=== PATIENT | female | born 1940 | race Caucasian/White ===

== ENCOUNTER 2019-01-22 16:47 | Emergency (ER) | payer MEDICARE, MEDICAID ==
[~2019-01-22] VITALS: Ht 162.6 cm; Wt 68.0 kg
--- NOTE | 2019-01-22 16:55 | NUR ---
PT A/OX4, BIB PRIVATE AMBULANCE FROM [facility], C/O HEMATURIA YESTERDAY. PT PRESENTS W/ UROSTOMY BAG, URINE IS CLEAR AND LIGHT YELLOW IN COLOR. SECONDARY COMPLAINT: PER EMT'S REPORT, PT WAS FOUND SITTING ON THE FLOOR NEXT TO HER BED AT THE [facility] [employer]. PT REPORTS SHE GOT "DIZZY" AND SAT HERSELF DOWN ON THE FLOOR. PT DENIES HEAD INJURY/LOC. UPON ASSESSMENT, THERE ARE MINOR ABRASIONS ON THE L HAND AND L FOREARM. VS WNL. PT DENIES PAIN, C/P, SOB, N/V/D, DIZZINESS, HEADACHE.
--- NOTE | 2019-01-22 17:15 | NUR ---
GORDO RUDOLPH AT BEDSIDE FOR MSE.
[2019-01-22] MEDS ORDERED: MAGN400O6 PO (17:18)
[2019-01-22] MEDS ORDERED: TRAM50TA2 PO (17:18)
[2019-01-22] MEDS ORDERED: ACET-2154 PO (17:18)
[2019-01-22] MEDS ORDERED: MELO-105 PO (17:18)
[2019-01-22] MEDS ORDERED: CALC-261 PO (17:18)
[2019-01-22] MEDS ORDERED: MELA3TAB PO (17:18)
[2019-01-22] MEDS ORDERED: LEVO100T10 PO (17:18)
[2019-01-22] MEDS ORDERED: DOCU-141 PO (17:18)
[2019-01-22] MEDS ORDERED: FURO-151 PO (17:18)
[2019-01-22] MEDS ORDERED: ATOR10TA PO (17:18)
--- NOTE | 2019-01-22 17:47 | NUR ---
PT TAKEN TO RADIOOGY FOR CT SCAN.
[2019-01-22 17:50] LABS: BASOPHILS # (AUTO) 0.1 K/uL (0.0-8.0); HEMATOCRIT 31.4 % (31.2-41.9); HEMOGLOBIN 10.4 g/dL (10.9-14.3); LYMPHOCYTES # (AUTO) 2.1 K/uL (20.0-40.0); LYMPHOCYTES % (AUTO) 36.6 % (20.5-51.5); MEAN CORPUSCULAR HEMOGLOBIN 28.2 uug (24.7-32.8); MEAN CORPUSCULAR HGB CONC 33 g/dL (32.3-35.6); MEAN CORPUSCULAR VOLUME 85.2 fL (75.5-95.3); MONOCYTES # (AUTO) 0.3 K/uL (2.0-10.0); MONOCYTES % (AUTO) 5.8 % (0.0-11.0); NEUTROPHILS # (AUTO) 3.2 K/uL (1.8-8.9); NEUTROPHILS % (AUTO) 56.6 % (38.5-71.5); PLATELET COUNT (AUTO) 242 K/uL (179-408); RED BLOOD CELL COUNT(AUTO) 3.69 MIL/uL (3.63-4.92); WHITE BLOOD COUNT (AUTO) 5.7 K/uL (3.8-11.8)
[2019-01-22 18:01] LABS: *BILIRUBIN,URIN NEGATIVE (NEGATIVE); *BLOOD, URINE 1+ (NEGATIVE); *COLOR,URINE LIGHT YELLOW (YELLOW); *KETONES,URINE NEGATIVE (NEGATIVE); *UROBILINOGEN,URINE 0.2 E.U./dl (NORMAL); LEUKOCYTE ESTERASE ,URINE 1+ (NEGATIVE); NITRITE, URINE POSITIVE (NEGATIVE); UGLUCOSE NEGATIVE (NEGATIVE)
[2019-01-22 18:02] LABS: CARBON DIOXIDE 25 mmol/L (21-32); CHLORIDE 105 mmol/L (98-107); CREATININE 1.3 mg/dL (0.6-1.3); GLUCOSE 94 mg/dL (74-106); POTASSIUM 4.4 mmol/L (3.5-5.1); UREA NITROGEN, BLOOD 23 mg/dL (7-18)
[2019-01-22 18:03] LABS: *CLARITY,URINE SLIGHTLY CLOUDY (CLEAR)
--- NOTE | 2019-01-22 18:05 | NUR ---
PT BACK IN ER FROM RADIOLOGY.
[2019-01-22 18:10] LABS: BACTERIA,URINE MODERATE /HPF (NONE SEEN); SQUAMOUS EPITHELIAL CELL,UR FEW /HPF (NONE SEEN)
[2019-01-22 18:19] LABS: ALANINE AMINOTRANSFERASE 28 U/L (14-59); ALKALINE PHOSPHATASE 69 U/L (50-136); ASPARTATE AMINOTRANSFERASE 20 U/L (15-37); BILIRUBIN,DIRECT 0.1 mg/dL (0.0-0.2); BILIRUBIN,TOTAL 0.2 mg/dL (0.2-1.0); TOTAL PROTEIN, SERUM 7.7 g/dL (6.4-8.2)
[2019-01-22] MEDS ORDERED: CEFTRIAXONE 1 G VIAL ONE (18:49)
[2019-01-22] MEDS ORDERED: LIDOCAINE HCL 1% 20 ML VIAL ONE (18:49)
--- NOTE | 2019-01-22 19:02 | NUR ---
SHIFT REPORT GIVEN TO NELSON WINSLOW.
--- NOTE | 2019-01-22 19:05 | NUR ---
ASSUMED CARE OF PATIENT. PENDING CT RESULTS AT THIS TIME. THEN POSSIBLE D/C TO PREVIOUS LEVEL OF CARE IF CT IS CLEAR. WILL CONTINUE TO MONITOR PATIENT.
--- NOTE | 2019-01-22 19:21 | NUR ---
Patient not in cardiopulmonary distress. Rate/rythm regular. No heaves, lifts, gallops/murmurs noted. Respiration even and unlabored with symmetrical rise.
--- NOTE | 2019-01-22 19:25 | NUR ---
GORDO RUDOLPH ON PHONE WITH ALVIN RUDOLPH
--- NOTE | 2019-01-22 19:34 | NUR ---
pATIENT TO BE D/C TO PREVIOUS LEVEL OF CARE. BLS TRANSPORT ETA @ 30MIN. TRIP # [id number]
--- NOTE | 2019-01-22 20:00 | NUR ---
pATIENT IN BED, PENDING D/C TO PREVIOUS LEVEL OF CARE.
--- NOTE | 2019-01-22 20:21 | NUR ---
[facility] at bedside for patient product picker.
[2019-01-22] MEDS ORDERED: CLONIDINE HCL 0.2 MG TABLET ONE (20:26)
[2019-01-22] MEDS ORDERED: CLONIDINE HCL 0.2 MG TABLET PO ONE (20:30)
--- NOTE | 2019-01-22 20:31 | NUR ---
BP down to 162/81 after Clonidine 0.2mg given PO.
--- NOTE | 2019-01-22 20:40 | NUR ---
Patient discharged to home in stable conditon. Written and verbal after care instructions given. Patient verbalizes understanding of instructions. Belongings/chart given to EMT on [facility]
[2019-01-22 20:41] VITALS: BP 161/82
[2019-01-26] MEDS ORDERED: PIPE3.376 IV (07:20)
== END 2019-01-22 20:42 | disposition home or self-care (01) ==
LOC: ER 16:47
DX: R42 Dizziness and giddiness (principal); R31.9 Hematuria, unspecified; R19.7 Diarrhea, unspecified; E03.9 Hypothyroidism, unspecified; E78.5 Hyperlipidemia, unspecified; Z90.710 Acquired absence of both cervix and uterus; Z88.6 Allergy status to analgesic agent; Z88.5 Allergy status to narcotic agent; Z88.8 Allergy status to other drugs, medicaments and biological substances; Z79.899 Other long term (current) drug therapy; Z79.2 Long term (current) use of antibiotics
CPT/HCPCS: 36415; 70030-TC; 70450; 71045; 72125; 73502; 83605; 85025; 85730; 87040; 87077; 87086; 93005; A4663; J0696; J3490

== ENCOUNTER 2019-01-23 17:11 | Inpatient (IN) | payer MEDICARE, MEDICAID ==
[~2019-01-23] VITALS: Ht 160 cm; Wt 66.7 kg
[~2019-01-23 17:11] MED LIST: ACET-2154 PO; ATOR10TA PO; CALC-261 PO; DOCU-141 PO; FURO-151 PO; LEVO100T10 PO; MAGN400O6 PO; MELA3TAB PO; MELO-105 PO; TRAM50TA2 PO
--- NOTE | 2019-01-23 18:20 | NUR ---
RECIEVED PATIENT BY AMBULANCE AO 4, NO SOB , NO IV LINE, DIRECT ADMIT , UROSTOMY NOTED WITH BAG YELLOW URIN, PATIENT DIDNT WANT TO CHANGE CLOTHES YET WILL INDORSE TO THE NEXT SHIFT SAFETY EXPLAINED
[2019-01-23 18:45] VITALS: BP 143/47
--- NOTE | 2019-01-23 19:15 | NUR ---
Report given to Xin and addressed all the concerns
--- NOTE | 2019-01-23 19:30 | NUR ---
Received patient lying in bed,awake, alert and oriented x 4 still wearing her own clothes. Noted patient a direct admit under Dr. Nelson, still awaiting admitting orders. Patient has no IV access. Noted with urostomy connected to urine bag, draining clear yellow urine. Patient oriented to unit. Explained to patient the need to change to hospital gown and placement of tele monitor as ordered by doctor, patient verbalized understanding.
[2019-01-23 20:00] VITALS: BP 129/45
--- NOTE | 2019-01-23 20:00 | NUR ---
Contacted [facility] Nephrology group to get admitting orders for this patient. Charge nurse directly spoke with Dr. Nelson to ask for admitting orders.
[2019-01-23] MEDS ORDERED: ACETAMINOPHEN 325 MG TABLET PO PRN ×2 (21:30)
[2019-01-23] MEDS ORDERED: TRAMADOL HCL 50 MG TABLET PO PRN (21:30)
[2019-01-23] MEDS ORDERED: MAGNESIUM HYDROXIDE 30 ML LIQUID UDC PO PRN (21:30)
[2019-01-23] MEDS ORDERED: ZOLPIDEM 5 MG TABLET PO PRN (21:30)
[2019-01-23] MEDS ORDERED: ONDANSETRON 4 MG/2 ML VIAL IV PRN (21:30)
--- NOTE | 2019-01-23 23:00 | NUR ---
Attempted to insert IV access on this patient, however patient declined it. She states she does not want IV insertion. No due IV medications at the moment.
[2019-01-24 00:46] VITALS: BP 132/67
[2019-01-24 04:00] VITALS: BP 132/52
--- NOTE | 2019-01-24 05:46 | NUR ---
Patient slept well throughout the night, no distress and complaints noted. Patient refused IV insertion. Still with urostomy to urine bag, draining clear yellow urine. Attended all needs. Ensured safety and comfort.
--- NOTE | 2019-01-24 05:58 | NUR ---
Patient declined to have the kidney ultrasound done this morning and requests to have it done tomorrow morning. Spoke with control systems technician to update them about patient's decision. Will endorse to morning shift nurse.
[2019-01-24] MEDS: LEVOTHYROXINE SODIUM 100 MCG TABLET PO SCH (06:36)
--- NOTE | 2019-01-24 06:42 | NUR ---
Patient declined the blood draw this morning, patient states she wants to eat breakfast first, gain energy before doing any tests. Offered some snacks, but patient declined, states she needs a real meal.
[2019-01-24] MEDS ORDERED: ZOLPIDEM 5 MG TABLET PO PRN (07:00)
--- NOTE | 2019-01-24 08:00 | NUR ---
AWAKE ALERT BUT CONFUSED X3, NEEDS ATTENDED. REFUSED BREAKFAST IN SPITE OF ASSISTANCE. REORIENTATION DONE. CONTINUE WITH IVF AT 75MLS/HR
[2019-01-24 08:07] LABS: *BILIRUBIN,URIN NEGATIVE (NEGATIVE); *COLOR,URINE YELLOW (YELLOW); *KETONES,URINE NEGATIVE (NEGATIVE); *UROBILINOGEN,URINE 0.2 E.U./dl (NORMAL); LEUKOCYTE ESTERASE ,URINE 3+ (NEGATIVE); NITRITE, URINE POSITIVE (NEGATIVE); PH,URINE 8.5 (5.0-8.0); UGLUCOSE NEGATIVE (NEGATIVE)
[2019-01-24 08:09] LABS: *BLOOD, URINE TRACE (NEGATIVE); *CLARITY,URINE SLIGHTLY CLOUDY (CLEAR)
[2019-01-24 08:11] LABS: BACTERIA,URINE MODERATE /HPF (NONE SEEN); RBC,URINE 0-3 /HPF (0-3); SQUAMOUS EPITHELIAL CELL,UR FEW /HPF (NONE SEEN); WBC,URINE 20-50 /HPF (0-3)
[2019-01-24] MEDS: DOCUSATE SODIUM 100 MG CAPSULE PO SCH ×2 (09:00→16:11)
[2019-01-24] MEDS: MELOXICAM 7.5 MG TABLET PO SCH (10:18)
[2019-01-24] MEDS: FUROSEMIDE 40 MG TABLET PO SCH (10:19)
[2019-01-24] MEDS: CALCIUM CARB/VITAMIN D 500MG-200UNITS TABLET PO SCH (10:19)
[2019-01-24 11:39] VITALS: BP 125/50
[2019-01-24 12:11] LABS: BASOPHILS # (AUTO) 0.1 K/uL (0.0-8.0); BASOPHILS % (AUTO) 0.8 % (0.0-2.0); HEMATOCRIT 31.5 % (31.2-41.9); HEMOGLOBIN 10.4 g/dL (10.9-14.3); LYMPHOCYTES # (AUTO) 1.8 K/uL (20.0-40.0); LYMPHOCYTES % (AUTO) 26.5 % (20.5-51.5); MEAN CORPUSCULAR HEMOGLOBIN 28.3 uug (24.7-32.8); MEAN CORPUSCULAR HGB CONC 33 g/dL (32.3-35.6); MONOCYTES # (AUTO) 0.4 K/uL (2.0-10.0); MONOCYTES % (AUTO) 5.4 % (0.0-11.0); NEUTROPHILS # (AUTO) 4.7 K/uL (1.8-8.9); NEUTROPHILS % (AUTO) 67.3 % (38.5-71.5); PLATELET COUNT (AUTO) 242 K/uL (179-408); RED BLOOD CELL COUNT(AUTO) 3.66 MIL/uL (3.63-4.92)
[2019-01-24 12:35] LABS: CARBON DIOXIDE 28 mmol/L (21-32); CHLORIDE 106 mmol/L (98-107); CHOLESTEROL 195 mg/dL (<200); CREATININE 1.2 mg/dL (0.6-1.3); FERRITIN 31 ng/mL (8-252); GLUCOSE 97 mg/dL (74-106); HDL CHOLESTEROL 65 mg/dL (40-60); MAGNESIUM 2.1 mg/dL (1.8-2.4); PHOSPHOROUS 4.1 mg/dL (2.5-4.9); POTASSIUM 4.5 mmol/L (3.5-5.1); TRIGLYCERIDES 96 MG/DL (30-150); UREA NITROGEN, BLOOD 23 mg/dL (7-18)
--- NOTE | 2019-01-24 13:00 | NUR ---
SEEN BY DR NICK FOR FOLLOW-UP SEE NOTES. CONTINUE WITH PAIN MANAGEMENT. SEEN BY PHYSICAL THERAPIST SEE NOTES
[2019-01-24 13:08] LABS: IRON, SERUM 38 ug/dL (50-175)
[2019-01-24 15:46] VITALS: BP 131/65
--- NOTE | 2019-01-24 15:50 | NUR ---
CONTINUE PT, OT, SPEECH ORDERED, NO ACUTE CHANGE, SR ON MONITOR
[2019-01-24 20:00] VITALS: BP 106/45
--- NOTE | 2019-01-24 20:00 | NUR ---
RECEIVED PT. ALERT ORIENTED X4. PT LAYING IN BED. NO ACUTE DISTRESS, PAIN, OR DISCOMFORT. PT. IS ON TELE MONITOR IN SINUS RHYTHM. IV IN RIGHT HAND 20 GAUGE HEP LOCK. PT. HAS UROSTOMY BAG. SAFETY INITIATED. 2 SIDE RAILS UP, BED LOCKED, BED IN LOWEST POSITION. CALL LIGHT WITHIN REACH. BED ALARM ON.
[2019-01-24] MEDS: MELATONIN 3 MG TABLET PO SCH (20:13)
[2019-01-24] MEDS: ATORVASTATIN 10 MG TABLET PO SCH (20:13)
[2019-01-25] VITALS: BP 116/51
[2019-01-25 04:00] VITALS: BP 116/49
--- NOTE | 2019-01-25 05:31 | NUR ---
Pt. is alert oriented x 4 in no discomfort, pain, or distress.Pt.slept throughout night. IV site in right hand 20 gauge hep lock. IV is patent and intact. Pt. has urostomy bag.Pt. on residential monitor. All needs attended to promptly. Safety initiated. Bed in lowest position, 2 side rails up, bed locked, call light within reach. Comfort measures provided. Will continue to monitor.
[2019-01-25] MEDS: LEVOTHYROXINE SODIUM 100 MCG TABLET PO SCH (06:30)
--- NOTE | 2019-01-25 08:00 | NUR ---
AWAKE ALERT AND ORIENTED X3, NO SS OF PAIN OR DISTRESS. REQUIRES MINIMAL IN ALL AREAS OF ADLS. SR ON MONITOR
[2019-01-25] MEDS: DOCUSATE SODIUM 100 MG CAPSULE PO SCH ×2 (09:11→16:18)
[2019-01-25] MEDS: FUROSEMIDE 40 MG TABLET PO SCH (09:11)
[2019-01-25] MEDS: CALCIUM CARB/VITAMIN D 500MG-200UNITS TABLET PO SCH (09:11)
[2019-01-25] MEDS: MELOXICAM 7.5 MG TABLET PO SCH (09:11)
--- NOTE | 2019-01-25 11:30 | NUR ---
DR NICK MADE AWARE OF PATIENT POSITVE TO UTI WITH GRAM NEGATIVE RODS
[2019-01-25 11:37] VITALS: BP 119/49
--- NOTE | 2019-01-25 11:44 | NUR ---
REFUSED PHYSICAL THERAPY FOR THE MORNING SESSION, WILL FOLLOW-UP THIS PM.
[2019-01-25 15:07] VITALS: BP 112/56
--- NOTE | 2019-01-25 17:27 | NUR ---
CONTINUE CURRENT TX PLAN ORDERED
--- NOTE | 2019-01-25 19:30 | NUR ---
PATIENT RECEIVED LYING IN BED. A/O X4. SAFETY MEASURES AND COMFORT MEASURES PROVIDED. BED IN LOWEST POSITION, SIDE RAILS UP X2, BED ALARM ON. NO SIGNS OF ACUTE DISTESS.
[2019-01-25 20:00] VITALS: BP 103/40
[2019-01-25] MEDS: ATORVASTATIN 10 MG TABLET PO SCH (21:06)
[2019-01-25] MEDS: MELATONIN 3 MG TABLET PO SCH (21:06)
[2019-01-25] MEDS: PIPERACILLIN SODIUM/TAZOBACTAM 3.375 G in IV DEXTROSE 5% 50 ML IV SCH (21:06)
[2019-01-26] MEDS: PIPERACILLIN SODIUM/TAZOBACTAM 3.375 G in IV DEXTROSE 5% 50 ML IV SCH ×2 (05:17→13:31)
[2019-01-26 05:21] VITALS: BP 117/49
[2019-01-26 05:22] VITALS: BP 117/49
--- NOTE | 2019-01-26 05:54 | NUR ---
PATIENT SLEEPING INTERMITTENTLY THROUGHOUT THE NIGHT. COMFORT MEASURES AND SAFETY MEASURES PROVIDED. BED IN LOWEST POSITION, SIDE RAILS UP X2, BED ALARM ON, CALL LIGHT WITHIN REACH. STOOL SAMPLE WILL BE ENDORSED TO AM SHIFT.
[2019-01-26] MEDS: LEVOTHYROXINE SODIUM 100 MCG TABLET PO SCH (06:38)
[2019-01-26] MEDS ORDERED: PIPE3.376 IV (07:20)
[2019-01-26] MEDS: DOCUSATE SODIUM 100 MG CAPSULE PO SCH ×2 (08:08→16:03)
[2019-01-26] MEDS: MELOXICAM 7.5 MG TABLET PO SCH (08:28)
[2019-01-26] MEDS: FUROSEMIDE 40 MG TABLET PO SCH (08:28)
[2019-01-26] MEDS: CALCIUM CARB/VITAMIN D 500MG-200UNITS TABLET PO SCH (08:29)
[2019-01-26 11:12] VITALS: BP 147/60
[2019-01-26 12:24] LABS: BASOPHILS # (AUTO) 0.1 K/uL (0.0-8.0); BASOPHILS % (AUTO) 1.3 % (0.0-2.0); HEMATOCRIT 34.6 % (31.2-41.9); HEMOGLOBIN 11.2 g/dL (10.9-14.3); LYMPHOCYTES # (AUTO) 2.4 K/uL (20.0-40.0); LYMPHOCYTES % (AUTO) 31.1 % (20.5-51.5); MEAN CORPUSCULAR HEMOGLOBIN 27.8 uug (24.7-32.8); MEAN CORPUSCULAR HGB CONC 32 g/dL (32.3-35.6); MEAN CORPUSCULAR VOLUME 86.1 fL (75.5-95.3); MONOCYTES # (AUTO) 0.4 K/uL (2.0-10.0); MONOCYTES % (AUTO) 5.4 % (0.0-11.0); NEUTROPHILS # (AUTO) 4.8 K/uL (1.8-8.9); NEUTROPHILS % (AUTO) 62.2 % (38.5-71.5); PLATELET COUNT (AUTO) 241 K/uL (179-408); RED BLOOD CELL COUNT(AUTO) 4.02 MIL/uL (3.63-4.92); WHITE BLOOD COUNT (AUTO) 7.7 K/uL (3.8-11.8)
[2019-01-26 12:26] LABS: ALANINE AMINOTRANSFERASE 20 U/L (14-59); ALKALINE PHOSPHATASE 69 U/L (50-136); ASPARTATE AMINOTRANSFERASE 18 U/L (15-37); BILIRUBIN,TOTAL 0.4 mg/dL (0.2-1.0); CARBON DIOXIDE 21 mmol/L (21-32); CHLORIDE 104 mmol/L (98-107); CREATININE 1.5 mg/dL (0.6-1.3); GLUCOSE 102 mg/dL (74-106); MAGNESIUM 2.1 mg/dL (1.8-2.4); PHOSPHOROUS 4.9 mg/dL (2.5-4.9); POTASSIUM 4.3 mmol/L (3.5-5.1); TOTAL PROTEIN, SERUM 7.6 g/dL (6.4-8.2); UREA NITROGEN, BLOOD 42 mg/dL (7-18)
[2019-01-26 15:34] VITALS: BP 92/47
[2019-01-26 15:52] LABS: *OCCULT BLOOD STOOL NEGATIVE (NEGATIVE)
--- NOTE | 2019-01-26 17:00 | NUR ---
Report called to NAYLA Best at [facility]. Addressed all questions and gave report regarding patient. Patient will be going to room 346B.
--- NOTE | 2019-01-26 17:12 | NUR ---
Scheduled transportation via [facility] Trip #[id number] ETA [id number]. Going to [facility].
--- NOTE | 2019-01-26 18:25 | NUR ---
Patient stable, no distress noted or complaints of pain. Alert and oriented. Patient ready for discharge to [facility]. Report called to NAYLA Best and transport with Celia scheduled pickling operator at 1944. Will endorse care to oncoming shift and inform of patient discharge pending pickling operator.
[2019-01-26 19:41] VITALS: BP 148/78
--- NOTE | 2019-01-26 19:50 | NUR ---
PATIENT WAS PICKED UP BY [facility] FOR DISCHARGE TO [facility] IN FAIR CONDITION, PATIENT TOOK ALL BELONGINGS.
== END 2019-01-26 19:52 | DRG 689 ==
LOC: TELE3 17:58 → MEDSURG3 01-25 14:38
PROVIDERS: ADMIT Internal Medicine; ATTEND Internal Medicine
DX: N39.0 Urinary tract infection, site not specified (principal); N17.0 Acute kidney failure with tubular necrosis; R47.01 Aphasia; I50.42 Chronic combined systolic (congestive) and diastolic (congestive) heart failure; Z93.6 Other artificial openings of urinary tract status; Z85.51 Personal history of malignant neoplasm of bladder; E78.5 Hyperlipidemia, unspecified; E03.9 Hypothyroidism, unspecified; N18.9 Chronic kidney disease, unspecified; B95.2 Enterococcus as the cause of diseases classified elsewhere; B96.20 Unspecified Escherichia coli [E. coli] as the cause of diseases classified elsewhere; R31.0 Gross hematuria; M19.90 Unspecified osteoarthritis, unspecified site; I35.0 Nonrheumatic aortic (valve) stenosis; M47.812 Spondylosis without myelopathy or radiculopathy, cervical region; D64.9 Anemia, unspecified; F39 Unspecified mood [affective] disorder
CPT/HCPCS: 36415; 70030-TC; 70450; 71045; 72125; 73502; 76770; 83550; 83605; 83735; 84100; 85025; 85651; 85730; 87040; 87077; 87086; 92526; 92610; 93005; 93307; 93880; 97116; 97165; 97530; 97535; A4663; G0378; J2543; J3490; J7040; J7060

== ENCOUNTER 2019-04-20 11:45 | Emergency (ER) | payer MEDICARE, MEDICAID ==
[~2019-04-20] VITALS: Ht 160 cm; Wt 68.0 kg
[~2019-04-20 11:45] MED LIST changes: +PIPE3.376 IV
--- NOTE | 2019-04-20 12:19 | NUR ---
Call placed to [facility]. Trip #[id number], ETA = [id number], return patient to [facility].
--- NOTE | 2019-04-20 12:30 | NUR ---
patient has an existing urostomy to a drainage bag that needed replaced abd done. patient instructed on care
--- NOTE | 2019-04-20 13:44 | NUR ---
Lunch tray provided to patient.
--- NOTE | 2019-04-20 14:36 | NUR ---
call to [facility] RN. gave report/ patient has an extra supplies for next urostomy bag. ambulance picked her up
[2019-04-20 14:38] VITALS: BP 137/89
== END 2019-04-20 14:41 | disposition home or self-care (01) ==
LOC: ER 11:45
DX: T83.031A Leakage of indwelling urethral catheter, initial encounter (principal); F32.9 Major depressive disorder, single episode, unspecified; E03.9 Hypothyroidism, unspecified; E78.5 Hyperlipidemia, unspecified; Z90.710 Acquired absence of both cervix and uterus; Z79.899 Other long term (current) drug therapy
CPT/HCPCS: 51702; 99284; C2627; A4663

== ENCOUNTER 2019-04-27 16:31 | Emergency (ER) | payer MEDICARE, MEDICAID ==
[~2019-04-27] VITALS: Ht 160 cm; Wt 68.0 kg
--- NOTE | 2019-04-27 18:13 | NUR ---
Patient is resting comfortably on gurney, NAD. PATIENT IS PAIN FREE AT THIS TIME.
--- NOTE | 2019-04-27 19:06 | NUR ---
shift report received from NAYLA Stratton.
--- NOTE | 2019-04-27 20:30 | NUR ---
Called [facility], spoke with Kelby, trip#[phone]
--- NOTE | 2019-04-27 22:34 | NUR ---
Spoke to Kelby at [facility], ETA 20 more minutes.
--- NOTE | 2019-04-27 23:00 | NUR ---
called [facility] waiting for immigration case worker physician to call back.
--- NOTE | 2019-04-27 23:26 | NUR ---
Dr. Gomez spoke to Er physician Dr. Cordova, agreed for patient to leave facility and go back to [facility]. jamshid continues to refuse and be non compliant.
--- NOTE | 2019-04-27 23:30 | NUR ---
called dry house attendant to speak to patient and ER physician
--- NOTE | 2019-04-27 23:58 | NUR ---
Patient discharged to home in stable conditon. Written and verbal after care instructions given. Patient verbalizes understanding of instructions. [facility] Patient has ostomy replaced. Ostomie was cleansed and ostomy and intact. patient ambualtory with steady gait. Patient VSS and denies any pain/discomfort at this time.
[2019-04-28 01:13] VITALS: BP 140/79
== END 2019-04-28 00:03 | disposition home or self-care (01) ==
LOC: ER 16:37
DX: T83.038A Leakage of other urinary catheter, initial encounter (principal); E78.5 Hyperlipidemia, unspecified; E03.9 Hypothyroidism, unspecified; F32.9 Major depressive disorder, single episode, unspecified; Z88.5 Allergy status to narcotic agent; Z88.6 Allergy status to analgesic agent; Z88.8 Allergy status to other drugs, medicaments and biological substances; Z79.899 Other long term (current) drug therapy
CPT/HCPCS: A4663

== ENCOUNTER 2024-04-04 09:29 | Inpatient (IN) | payer MEDICARE, OTHER ==
[~2024-04-04] VITALS: Ht 160 cm; Wt 70.8 kg
[~2024-04-04 09:29] MED LIST changes: -MELA3TAB PO; +MELA3TAB41 PO
[2024-04-04] MEDS ORDERED: HONE15GE TP (09:50)
[2024-04-04] MEDS ORDERED: ACET-637 PO (09:50)
[2024-04-04] MEDS ORDERED: LEVO75TA7 PO (09:50)
[2024-04-04] MEDS ORDERED: TRAM100T23 PO (09:50)
[2024-04-04] MEDS ORDERED: APIX5TAB PO (09:50)
[2024-04-04] MEDS ORDERED: DIPH25CA83 PO (09:50)
[2024-04-04] MEDS ORDERED: LISI10TA29 PO (09:50)
[2024-04-04] MEDS ORDERED: MONT10TA22 PO (09:50)
[2024-04-04] MEDS ORDERED: CHOL500062 PO (09:50)
[2024-04-04] MEDS ORDERED: OXYC10TA49 PO (09:50)
[2024-04-04] MEDS ORDERED: TRAMADOL HCL 50 MG TABLET ONE (09:56)
[2024-04-04] MEDS ORDERED: ONDANSETRON 4 MG/2 ML VIAL ONE (09:56)
[2024-04-04] MEDS: IV NORMAL SALINE 500 ML BAG IV ONE (10:02)
[2024-04-04] MEDS: TRAMADOL HCL 50 MG TABLET PO ONE (10:02)
[2024-04-04] MEDS: ONDANSETRON 4 MG/2 ML VIAL IV ONE (10:02)
[2024-04-04 10:08] LABS: CALCIUM 8.9 mg/dL (8.5-10.1); CARBON DIOXIDE 21 mmol/L (21-32); CHLORIDE 100 mmol/L (98-107); CREATININE 1.5 mg/dL (0.6-1.3); GLUCOSE 135 mg/dL (74-106); POTASSIUM 4.5 mmol/L (3.5-5.1); SODIUM SERUM 135 mmol/L (136-145); UREA NITROGEN, BLOOD 26 mg/dL (7-18)
[2024-04-04 10:14] LABS: ALANINE AMINOTRANSFERASE 17 U/L (14-59); ALBUMIN 3.6 g/dL (3.4-5.0); ALKALINE PHOSPHATASE 102 U/L (50-136); ASPARTATE AMINOTRANSFERASE 20 U/L (15-37); BILIRUBIN,DIRECT 0.1 mg/dL (0.0-0.2); BILIRUBIN,TOTAL 0.6 mg/dL (0.2-1.0); TOTAL PROTEIN, SERUM 7.8 g/dL (6.4-8.2)
[2024-04-04 10:33] LABS: BASOPHILS # (AUTO) 0.1 K/UL (0.0-0.2); BASOPHILS % (AUTO) 0.9 % (0.0-2.0); HEMATOCRIT 38.7 % (31.2-41.9); HEMOGLOBIN 12.3 g/dL (10.9-14.3); LYMPHOCYTES # (AUTO) 1.4 K/uL (0.8-4.8); LYMPHOCYTES % (AUTO) 7.9 % (20.5-51.5); MEAN CORPUSCULAR HEMOGLOBIN 27.3 uug (24.7-32.8); MEAN CORPUSCULAR HGB CONC 32 g/dL (32.3-35.6); MONOCYTES # (AUTO) 0.5 K/uL (0.1-1.30); MONOCYTES % (AUTO) 3.1 % (0.0-11.0); NEUTROPHILS # (AUTO) 15.3 K/uL (1.8-8.9); NEUTROPHILS % (AUTO) 88.1 % (38.5-71.5); PLATELET COUNT (AUTO) 317 K/uL (179-408); RED CELL DISTRIBUTION WIDTH 14.3 % (12.3-17.7); WHITE BLOOD COUNT (AUTO) 17.4 K/uL (3.8-11.8)
[2024-04-04] MEDS ORDERED: MORPHINE SULFATE 4 MG/1 ML DISP.SYRIN ONE (10:34)
[2024-04-04 10:35] LABS: DIFFERENTIAL COMMENT 1
[2024-04-04] MEDS: MORPHINE SULFATE 4 MG/1 ML DISP.SYRIN IV ONE (10:36)
[2024-04-04 11:06] LABS: *OCCULT BLOOD STOOL POSITIVE (NEGATIVE)
[2024-04-04] MEDS ORDERED: CEFTRIAXONE /D5W 50ML IVPB **ER PYXIS IV ONE (11:14)
[2024-04-04] MEDS: CEFTRIAXONE 1 G in IV DEXTROSE 5% 50 ML IV ONE (11:21)
[2024-04-04] MEDS ORDERED: ONDANSETRON 4 MG/2 ML VIAL IV PRN (11:45)
[2024-04-04] MEDS ORDERED: MAGNESIUM HYDROXIDE 30 ML LIQUID UDC PO PRN (11:45)
[2024-04-04] MEDS ORDERED: REMEDY ESSENTIAL ZINC PASTE 113 GM TP PRN (11:45)
[2024-04-04] MEDS: CEFTRIAXONE 1 G in IV DEXTROSE 5% 50 ML IV SCH (11:45)
[2024-04-04] MEDS ORDERED: PANTOPRAZOLE SODIUM 40 MG VIAL ONE (12:17)
[2024-04-04] MEDS: PANTOPRAZOLE SODIUM 40 MG VIAL IV SCH (12:25)
[2024-04-04] MEDS ORDERED: HYDROCODONE/APAP 5-325MG TABLET ONE (13:30)
[2024-04-04] MEDS: HYDROCODONE/APAP 5-325MG TABLET PO PRN (13:31)
[2024-04-04 14:09] LABS: IRON, SERUM 23 ug/dL (50-175)
[2024-04-04] MEDS ORDERED: MORPHINE SULFATE 2 MG/1 ML DISP.SYRIN IV PRN (14:30)
[2024-04-04] MEDS: LORAZEPAM 0.5 MG TABLET PO PRN (15:45)
[2024-04-04 16:00] VITALS: BP 146/70; TEMP 98.1; O2SAT 96
[2024-04-04] MEDS: ACETAMINOPHEN 325 MG TABLET PO PRN (18:05)
[2024-04-04 18:45] LABS: HEMATOCRIT 35.8 % (31.2-41.9); HEMOGLOBIN 11.6 g/dL (10.9-14.3)
[2024-04-04] MEDS ORDERED: CYAN-10 IJ (19:02)
[2024-04-04] MEDS ORDERED: CHOL-35 PO (19:02)
[2024-04-04 20:00] VITALS: BP 139/60; TEMP 98.2; O2SAT 97
[2024-04-05 06:59] LABS: BASOPHILS # (AUTO) 0.1 K/UL (0.0-0.2); BASOPHILS % (AUTO) 0.5 % (0.0-2.0); HEMATOCRIT 35.4 % (31.2-41.9); HEMOGLOBIN 11.2 g/dL (10.9-14.3); LYMPHOCYTES # (AUTO) 3.4 K/uL (0.8-4.8); LYMPHOCYTES % (AUTO) 17.2 % (20.5-51.5); MEAN CORPUSCULAR HEMOGLOBIN 27.2 uug (24.7-32.8); MEAN CORPUSCULAR HGB CONC 32 g/dL (32.3-35.6); MEAN CORPUSCULAR VOLUME 85.5 fL (75.5-95.3); MONOCYTES # (AUTO) 0.8 K/uL (0.1-1.30); MONOCYTES % (AUTO) 4.1 % (0.0-11.0); NEUTROPHILS # (AUTO) 15.3 K/uL (1.8-8.9); NEUTROPHILS % (AUTO) 78.2 % (38.5-71.5); PLATELET COUNT (AUTO) 308 K/uL (179-408); RED BLOOD CELL COUNT(AUTO) 4.14 MIL/uL (3.63-4.92); RED CELL DISTRIBUTION WIDTH 14.7 % (12.3-17.7); WHITE BLOOD COUNT (AUTO) 19.6 K/uL (3.8-11.8)
[2024-04-05 07:09] LABS: DIFFERENTIAL COMMENT 1
[2024-04-05 07:17] LABS: *BILIRUBIN,URIN NEGATIVE (NEGATIVE); *CLARITY,URINE CLEAR (CLEAR); *COLOR,URINE YELLOW (YELLOW); *KETONES,URINE NEGATIVE (NEGATIVE); *PROTEIN,URINE TRACE (NEGATIVE); *UROBILINOGEN,URINE 0.2 E.U./dl (NORMAL); LEUKOCYTE ESTERASE ,URINE 3+ (NEGATIVE); NITRITE, URINE NEGATIVE (NEGATIVE); UGLUCOSE NEGATIVE (NEGATIVE)
[2024-04-05 07:19] LABS: CALCIUM 8.8 mg/dL (8.5-10.1); CARBON DIOXIDE 21 mmol/L (21-32); CHLORIDE 101 mmol/L (98-107); CREATININE 1.4 mg/dL (0.6-1.3); GLUCOSE 110 mg/dL (74-106); MAGNESIUM 2.2 mg/dL (1.8-2.4); PHOSPHOROUS 3.5 mg/dL (2.5-4.9); POTASSIUM 3.9 mmol/L (3.5-5.1); SODIUM SERUM 134 mmol/L (136-145); UREA NITROGEN, BLOOD 24 mg/dL (7-18)
[2024-04-05 07:21] LABS: *BLOOD, URINE TRACE (NEGATIVE)
[2024-04-05 07:25] LABS: THYROID STIMULATING HORMONE 3.392 mIU/mL (0.358-3.740)
[2024-04-05 08:00] VITALS: BP 141/52; TEMP 97.2; O2SAT 96
[2024-04-05] MEDS: CEFTRIAXONE 1 G in IV DEXTROSE 5% 50 ML IV SCH (11:31)
[2024-04-05 12:00] VITALS: BP 153/71; TEMP 97.1; O2SAT 97
[2024-04-05] MEDS ORDERED: APIXABAN 5 MG TABLET PO SCH (13:45)
[2024-04-05] MEDS ORDERED: ACETAMINOPHEN ES 500 MG TABLET- SA PATIENTS-PAIN ONLY PO PRN (13:45)
[2024-04-05] MEDS: LISINOPRIL 10 MG TABLET PO SCH (14:44)
[2024-04-05] MEDS: CYANOCOBALAMIN 1000 MCG/ML VIAL IM SCH (14:48)
[2024-04-05 15:03] LABS: BACTERIA,URINE FEW /HPF (NONE SEEN); RBC,URINE 0-3 /HPF (0-3); SQUAMOUS EPITHELIAL CELL,UR FEW /HPF (NONE SEEN); WBC,URINE 20-50 /HPF (0-3)
[2024-04-05 15:06] LABS: TRIPLE PHOSPHATE CRYSTAL,UR FEW /HPF (NONE SEEN)
[2024-04-05 16:00] VITALS: BP 151/60; TEMP 98.5; O2SAT 97
[2024-04-05] MEDS ORDERED: diphenhydrAMINE 25 MG CAP PO PRN (16:45)
[2024-04-05] MEDS: LEVOTHYROXINE SODIUM 75 MCG TABLET PO SCH (17:39)
[2024-04-05] MEDS: MONTELUKAST SODIUM 10 MG TABLET PO SCH (17:39)
[2024-04-05] MEDS: OXYCODONE HCL 5 MG TABLET PO PRN (17:47)
[2024-04-06 04:52] VITALS: BP 132/89; TEMP 99; O2SAT 96
[2024-04-06] MEDS: CHOLECALCIFEROL 1,000 UNIT TABLET PO SCH (09:00)
[2024-04-06] MEDS: MEDIHONEY= THERAHONEY 1.5 OZ TUBE TOP SCH (09:00)
[2024-04-06 10:35] LABS: BASOPHILS # (AUTO) 0.1 K/UL (0.0-0.2); BASOPHILS % (AUTO) 0.7 % (0.0-2.0); HEMATOCRIT 33.2 % (31.2-41.9); HEMOGLOBIN 10.6 g/dL (10.9-14.3); LYMPHOCYTES # (AUTO) 2.5 K/uL (0.8-4.8); LYMPHOCYTES % (AUTO) 18.1 % (20.5-51.5); MEAN CORPUSCULAR HEMOGLOBIN 27.2 uug (24.7-32.8); MEAN CORPUSCULAR HGB CONC 32 g/dL (32.3-35.6); MEAN CORPUSCULAR VOLUME 85.4 fL (75.5-95.3); MONOCYTES # (AUTO) 0.6 K/uL (0.1-1.30); MONOCYTES % (AUTO) 4.3 % (0.0-11.0); NEUTROPHILS # (AUTO) 10.5 K/uL (1.8-8.9); NEUTROPHILS % (AUTO) 76.9 % (38.5-71.5); PLATELET COUNT (AUTO) 291 K/uL (179-408); RED BLOOD CELL COUNT(AUTO) 3.89 MIL/uL (3.63-4.92); RED CELL DISTRIBUTION WIDTH 14.6 % (12.3-17.7); WHITE BLOOD COUNT (AUTO) 13.7 K/uL (3.8-11.8)
[2024-04-06 10:40] LABS: DIFFERENTIAL COMMENT 1
[2024-04-06 10:51] LABS: ALBUMIN 3.2 g/dL (3.4-5.0); BILIRUBIN,TOTAL 0.3 mg/dL (0.2-1.0); CALCIUM 8.5 mg/dL (8.5-10.1); CREATININE 1.3 mg/dL (0.6-1.3); MAGNESIUM 2.1 mg/dL (1.8-2.4); PHOSPHOROUS 2.7 mg/dL (2.5-4.9); POTASSIUM 4.2 mmol/L (3.5-5.1); TOTAL PROTEIN, SERUM 7.1 g/dL (6.4-8.2)
[2024-04-06 11:49] VITALS: BP 135/47; TEMP 98.3; O2SAT 97
[2024-04-06 16:11] VITALS: BP 170/68; O2SAT 96
[2024-04-06 20:49] VITALS: BP 184/79; TEMP 97.8; O2SAT 97
[2024-04-07 05:00] VITALS: BP 142/80; TEMP 97.2; O2SAT 97
[2024-04-07 07:06] LABS: PTH, INTACT 56 pg/mL (15-65)
[2024-04-07 08:00] VITALS: BP 142/88; TEMP 98.2; O2SAT 94
[2024-04-07 16:09] VITALS: BP 168/78; TEMP 97.7; O2SAT 96
[2024-04-07 20:00] VITALS: BP 146/82; TEMP 98.6; O2SAT 98
[2024-04-08 05:00] VITALS: BP 142/72; TEMP 98.2; O2SAT 98
[2024-04-08] MEDS: TRAMADOL HCL 50 MG TABLET PO PRN (09:13)
[2024-04-08 12:00] VITALS: BP 108/58; TEMP 97.6; O2SAT 98
[2024-04-08 12:17] VITALS: BP 108/58; TEMP 97.6; O2SAT 98
[2024-04-08 15:46] VITALS: BP 137/58; TEMP 97.6; O2SAT 97
[2024-04-08] MEDS: PANTOPRAZOLE SODIUM 40 MG TABLET.DR PO SCH (16:45)
[2024-04-08 20:00] VITALS: BP 166/64; TEMP 97.9; O2SAT 96
[2024-04-09 06:57] VITALS: BP 168/55
[2024-04-09 09:08] LABS: A/G RATIO 0.9 (0.7-1.7); ALBUMIN 3.2 g/dL (2.9-4.4); ALPHA-1-GLOBULIN 0.4 g/dL (0.0-0.4); ALPHA-2-GLOBULIN 0.9 g/dL (0.4-1.0); BETA GLOBULIN 1.1 g/dL (0.7-1.3); GAMMA GLOBULIN 1.1 g/dL (0.4-1.8); GLOBULIN, TOTAL 3.5 g/dL (2.2-3.9); M-SPIKE Not Observed g/dL (Not Observed)
[2024-04-09] MEDS ORDERED: PANT40TA49 PO (10:56)
[2024-04-09] MEDS ORDERED: CEFT1PIG2 IV (10:56)
== END 2024-04-09 16:37 | DRG 377 ==
LOC: ER 09:29 → TELE3 15:03 → MEDSURG3 04-05 09:14
PROVIDERS: ADMIT Nurse Practitioner Acute Care; ATTEND Internal Medicine
DX: K92.2 Gastrointestinal hemorrhage, unspecified (principal); N17.0 Acute kidney failure with tubular necrosis; N39.0 Urinary tract infection, site not specified; Z66 Do not resuscitate; Z93.6 Other artificial openings of urinary tract status; E03.9 Hypothyroidism, unspecified; B95.2 Enterococcus as the cause of diseases classified elsewhere; E78.5 Hyperlipidemia, unspecified; G89.4 Chronic pain syndrome; I12.9 Hypertensive chronic kidney disease with stage 1 through stage 4 chronic kidney disease, or unspecified chronic kidney disease; N18.9 Chronic kidney disease, unspecified; Z87.440 Personal history of urinary (tract) infections; Z85.51 Personal history of malignant neoplasm of bladder; Z90.710 Acquired absence of both cervix and uterus; Z79.01 Long term (current) use of anticoagulants; Z79.899 Other long term (current) drug therapy
CPT/HCPCS: 36415; 83550; 83605; 83735; 83970; 84100; 84155; 84165; 84443; 85018; 85025; 85730; 86850; 86900; 86901; 87040; 93005; G0378; J0696; J2270; J2405; J2470; J3420; J7040

== ENCOUNTER 2025-04-13 23:39 | Emergency (ER) | payer MEDICARE, OTHER ==
[~2025-04-13] VITALS: Ht 160 cm; Wt 68.0 kg
[~2025-04-13 23:39] MED LIST changes: -ACET-2154 PO; +ACET-637 PO; +APIX5TAB PO; -ATOR10TA PO; -CALC-261 PO; +CEFT1PIG2 IV; +CHOL-35 PO; +CYAN-10 IJ; +DIPH25CA83 PO; -DOCU-141 PO; -FURO-151 PO; +HONE15GE TP; -LEVO100T10 PO; +LEVO75TA7 PO; +LISI10TA29 PO; -MAGN400O6 PO; -MELA3TAB41 PO; -MELO-105 PO; +MONT10TA22 PO; +OXYC10TA49 PO; +PANT40TA49 PO; -PIPE3.376 IV; +TRAM100T23 PO; -TRAM50TA2 PO
[2025-04-13 23:41] VITALS: BP 149/73
[2025-04-13] MEDS ORDERED: CALC-494 PO (23:51)
[2025-04-13] MEDS ORDERED: BENZ1LOZ58 PO (23:51)
[2025-04-13] MEDS ORDERED: CLON-418 PO (23:51)
[2025-04-14] MEDS ORDERED: FOLI1TAB94 PO (00:14)
[2025-04-14] MEDS ORDERED: GUAI600T53 PO (00:14)
[2025-04-14] MEDS ORDERED: LOPE2TAB25 PO (00:14)
[2025-04-14] MEDS ORDERED: OXYC10TA49 PO (00:14)
[2025-04-14] MEDS ORDERED: NA P133E RC (00:14)
[2025-04-14] MEDS ORDERED: CYAN10006 IM (00:14)
[2025-04-14] MEDS ORDERED: POLY250017 PO (00:14)
[2025-04-14] MEDS ORDERED: DOCU100T2 PO (00:14)
[2025-04-14] MEDS ORDERED: FLUT16SP16 BNOSTRILS (00:14)
[2025-04-14] MEDS ORDERED: MICO45CR18 VG (00:14)
[2025-04-14] MEDS ORDERED: FERR-56 PO (00:14)
[2025-04-14] MEDS ORDERED: FAMO10TA41 PO (00:14)
[2025-04-14] MEDS ORDERED: LIDO30AD10 TP (00:14)
[2025-04-14] MEDS ORDERED: PANT40TA2 PO (00:14)
[2025-04-14] MEDS ORDERED: FOLI0.8T2 PO (00:14)
[2025-04-14] MEDS ORDERED: LEVO88TA5 PO (00:14)
[2025-04-14] MEDS ORDERED: ERGO500040 PO (00:14)
[2025-04-14] MEDS ORDERED: NALO4SPR BNOSTRILS (00:14)
[2025-04-14] MEDS ORDERED: SENN8.6T19 PO (00:14)
[2025-04-14] MEDS ORDERED: ASCO500C18 PO (00:14)
[2025-04-14] MEDS ORDERED: MAGN400O6 PO (00:14)
[2025-04-14] MEDS ORDERED: GUAI-1197 PO (00:14)
[2025-04-14] MEDS ORDERED: BISA10SU61 RC (00:14)
[2025-04-14] MEDS ORDERED: LORA10TA61 PO (00:14)
[2025-04-14] MEDS: DEXAMETHASONE SOD PHOSPHATE 4 MG INJ IV ONE (00:30)
[2025-04-14 00:36] LABS: PLATELET COUNT (AUTO) 254 K/uL (179-408); RED BLOOD CELL COUNT(AUTO) 3.59 MIL/uL (3.63-4.92); RED CELL DISTRIBUTION WIDTH 17.0 % (12.3-17.7); WHITE BLOOD COUNT (AUTO) 5.1 K/uL (3.8-11.8)
[2025-04-14 00:42] LABS: ABG BASE EXCESS 2.1 mmol/L (-2.0-3.0); ABG HCO3 24.9 mmol/L (21.0-28.0); ABG PCO2 31.9 mmHg (32.0-45.0); ABG PH 7.510 (7.350-7.450); ABG PO2 < 40.5 mmHg (83.0-108.0); ABG SITE LEFT RADIAL; ABG TOTAL HEMOGLOBIN 9.1 G/dL (12.0-16.0); AaDO2 75.9 mmHg; FIO2 21.0 %
[2025-04-14 00:44] LABS: CREATININE 0.9 mg/dL (0.6-1.3); SODIUM SERUM 134 mmol/L (136-145); UREA NITROGEN, BLOOD 12 mg/dL (7-18)
[2025-04-14 00:49] LABS: ASPARTATE AMINOTRANSFERASE 7 U/L (15-37); TOTAL PROTEIN, SERUM 6.7 g/dL (6.4-8.2)
[2025-04-14 04:58] VITALS: BP 158/70; O2SAT 97
== END 2025-04-14 05:00 ==
LOC: ER 23:43
DX: Z20.89 Contact with and (suspected) exposure to other communicable diseases (principal); E03.9 Hypothyroidism, unspecified; E78.5 Hyperlipidemia, unspecified; G89.4 Chronic pain syndrome; F32.A Depression, unspecified; I13.11 Hypertensive heart and chronic kidney disease without heart failure, with stage 5 chronic kidney disease, or end stage renal disease; N18.6 End stage renal disease; M19.90 Unspecified osteoarthritis, unspecified site; Z79.01 Long term (current) use of anticoagulants; Z79.899 Other long term (current) drug therapy; Z85.51 Personal history of malignant neoplasm of bladder; Z87.440 Personal history of urinary (tract) infections; Z88.5 Allergy status to narcotic agent; Z88.6 Allergy status to analgesic agent; Z88.7 Allergy status to serum and vaccine; Z90.710 Acquired absence of both cervix and uterus; Z88.8 Allergy status to other drugs, medicaments and biological substances; Z91.011 Allergy to milk products
CPT/HCPCS: 36415; 36600; 83605; 84484; 85025; 85730; 87040; A4606; A4663

== ENCOUNTER 2025-08-26 10:05 | Inpatient (IN) | payer MEDICARE, OTHER ==
[~2025-08-26] VITALS: Ht 165.1 cm; Wt 54.5 kg
[~2025-08-26 10:05] MED LIST changes: +ASCO500C18 PO; +BENZ1LOZ58 PO; +BISA10SU61 RC; +CALC-494 PO; -CEFT1PIG2 IV; -CHOL-35 PO; -CYAN-10 IJ; +CYAN10006 IM; -DIPH25CA83 PO; +DOCU100T2 PO; +ERGO125010 PO; +FAMO10TA41 PO; +FERR-56 PO; +FLUT16SP16 BNOSTRILS; +FOLI0.8T2 PO; +FOLI1TAB94 PO; +GUAI-1197 PO; +GUAI600T53 PO; -HONE15GE TP; -LEVO75TA7 PO; +LEVO88TA5 PO; +LIDO30AD10 TP; +LOPE2TAB25 PO; +MAGN400O6 PO; +MICO45CR18 VG; +MONT-48 PO; -MONT10TA22 PO; +NA P133E RC; +NALO4SPR BNOSTRILS; +PANT40TA2 PO; -PANT40TA49 PO; +POLY250017 PO; +SENN8.6T19 PO; -TRAM100T23 PO; +[UNRECOGNIZED DRUG - CODE] PO; +[UNRECOGNIZED DRUG - CODE] PO
[2025-08-26 10:17] VITALS: BP 155/76
[2025-08-26 11:08] LABS: PLATELET COUNT (AUTO) 314 K/uL (179-408); RED BLOOD CELL COUNT(AUTO) 3.58 MIL/uL (3.63-4.92); RED CELL DISTRIBUTION WIDTH 17.4 % (12.3-17.7); WHITE BLOOD COUNT (AUTO) 4.2 K/uL (3.8-11.8)
[2025-08-26 11:17] LABS: CREATININE 0.9 mg/dL (0.6-1.3); SODIUM SERUM 139 mmol/L (136-145); UREA NITROGEN, BLOOD 10 mg/dL (7-18)
[2025-08-26 11:23] LABS: ASPARTATE AMINOTRANSFERASE 14 U/L (15-37); TOTAL PROTEIN, SERUM 7.1 g/dL (6.4-8.2)
[2025-08-26] MEDS ORDERED: OXYCODONE HCL 5 MG TABLET ONE (11:23)
[2025-08-26] MEDS ORDERED: SIME80TA15 PO (11:27)
[2025-08-26] MEDS ORDERED: DIPH50CA42 PO (11:27)
[2025-08-26] MEDS ORDERED: AMMO385C4 TP (11:27)
[2025-08-26] MEDS ORDERED: DIPH1TAB PO (11:27)
[2025-08-26] MEDS ORDERED: APIX5TAB4 PO (11:27)
[2025-08-26] MEDS ORDERED: MAG-5 PO (11:27)
[2025-08-26] MEDS ORDERED: [UNRECOGNIZED DRUG - CODE] PO (11:27)
[2025-08-26] MEDS: OXYCODONE HCL 5 MG TABLET PO ONE (11:29)
[2025-08-26 12:08] LABS: IRON, SERUM 25 ug/dL (50-175)
[2025-08-26] MEDS: MAGNESIUM HYDROXIDE 30 ML LIQUID UDC PO ONE (13:30)
[2025-08-26] MEDS: MINERAL OIL FLEET ENEMA 133 ML BOTTLE RC ONE (13:30)
[2025-08-26 13:34] LABS: *BILIRUBIN,URIN NEGATIVE (NEGATIVE); *COLOR,URINE YELLOW (YELLOW); *KETONES,URINE NEGATIVE (NEGATIVE); *PROTEIN,URINE NEGATIVE (NEGATIVE); *UROBILINOGEN,URINE 0.2 E.U./dl (NORMAL); LEUKOCYTE ESTERASE ,URINE 1+ (NEGATIVE); NITRITE, URINE POSITIVE (NEGATIVE); UGLUCOSE NEGATIVE (NEGATIVE)
[2025-08-26 13:35] LABS: *BLOOD, URINE TRACE (NEGATIVE); *CLARITY,URINE SLIGHTLY HAZY (CLEAR)
[2025-08-26 13:36] LABS: SQUAMOUS EPITHELIAL CELL,UR FEW /HPF (NONE SEEN)
[2025-08-26] MEDS ORDERED: CEFTRIAXONE /D5W 50ML IVPB **ER PYXIS IV ONE (14:16)
[2025-08-26] MEDS ORDERED: MAGNESIUM HYDROXIDE 30 ML LIQUID UDC ONE (14:16)
[2025-08-26] MEDS ORDERED: MINERAL OIL FLEET ENEMA 133 ML BOTTLE RC ONE (14:16)
[2025-08-26] MEDS ORDERED: ASPIRIN 81 MG TAB.CHEW ONE (14:16)
[2025-08-26] MEDS: ASPIRIN 81 MG TAB.CHEW PO ONE (14:26)
[2025-08-26] MEDS ORDERED: Medication Not On Formulary EA (Oxycodone Hcl 1 TAB) PO PRN (15:15)
[2025-08-26] MEDS ORDERED: FLEET ENEMA 133 ML BOTTLE RC PRN (15:15)
[2025-08-26] MEDS ORDERED: MENTHOL PO SCH (15:15)
[2025-08-26] MEDS ORDERED: BISACODYL 10 MG SUPP.RECT RC PRN (15:15)
[2025-08-26] MEDS ORDERED: GUAIFENESIN LA 600 MG TABLET.SA PO PRN (15:15)
[2025-08-26] MEDS ORDERED: ACETAMINOPHEN 325 MG TABLET PO PRN (15:15)
[2025-08-26] MEDS ORDERED: REMEDY ESSENTIAL ZINC PASTE 113 GM TP PRN (15:15)
[2025-08-26] MEDS ORDERED: ONDANSETRON 4 MG/2 ML VIAL IV PRN (15:15)
[2025-08-26] MEDS ORDERED: NALOXONE NASAL SPRAY 4 MG SPRAY NS PRN (15:15)
[2025-08-26] MEDS ORDERED: MAGNESIUM HYDROXIDE 30 ML LIQUID UDC PO PRN ×2 (15:15)
[2025-08-26] MEDS ORDERED: PROMETHAZINE PO PRN (15:15)
[2025-08-26] MEDS ORDERED: ENOXAPARIN SODIUM 40 MG/0.4 ML DISP.SYRIN SQ SCH (15:15)
[2025-08-26] MEDS ORDERED: ACETAMINOPHEN ES 500 MG TABLET- SA PATIENTS-PAIN ONLY PO PRN (15:15)
[2025-08-26] MEDS ORDERED: BENZOCAINE PO SCH (15:15)
[2025-08-26 16:30] VITALS: BP 152/77; TEMP 98.1; O2SAT 99
[2025-08-26] MEDS ORDERED: PROMETHAZINE PO (16:35)
[2025-08-26] MEDS ORDERED: CODEINE PO (16:35)
[2025-08-26] MEDS ORDERED: LORA10CA PO (16:50)
[2025-08-26] MEDS ORDERED: CLON0.1T PO (16:53)
[2025-08-26] MEDS ORDERED: CLONIDINE HCL 0.1 MG TABLET PO PRN (17:00)
[2025-08-26] MEDS: DOCUSATE SODIUM 100 MG CAPSULE PO SCH (17:00)
[2025-08-26] MEDS ORDERED: BENZOCAINE/MENTH/CETYLPYRD LOZENGE MM PRN (17:00)
[2025-08-26] MEDS ORDERED: LORATADINE 10 MG TABLET PO PRN (17:00)
[2025-08-26] MEDS: LISINOPRIL 10 MG TABLET PO SCH (17:38)
[2025-08-26] MEDS: MONTELUKAST SODIUM 10 MG TABLET PO SCH (17:40)
[2025-08-26] MEDS: OXYCODONE HCL 5 MG TABLET PO PRN (17:44)
[2025-08-26] MEDS: FLUTICASONE PROP NASAL SPRAY 16 GM BOTTLE NS SCH (18:39)
[2025-08-26 19:50] VITALS: BP 152/54; TEMP 98.1; O2SAT 98
[2025-08-26] MEDS ORDERED: ACETAMINOPHEN 500 MG TABLET PO PRN ×2 (21:30→21:45)
[2025-08-26] MEDS: SENNOSIDES 1 TABLET PO SCH (21:48)
[2025-08-27 00:15] VITALS: BP 147/63; TEMP 98.5; O2SAT 98
[2025-08-27 04:26] VITALS: BP 147/60; TEMP 98.2; O2SAT 96
[2025-08-27 06:27] LABS: PLATELET COUNT (AUTO) 273 K/uL (179-408); RED BLOOD CELL COUNT(AUTO) 3.13 MIL/uL (3.63-4.92); RED CELL DISTRIBUTION WIDTH 16.7 % (12.3-17.7); WHITE BLOOD COUNT (AUTO) 4.0 K/uL (3.8-11.8)
[2025-08-27] MEDS: PANTOPRAZOLE SODIUM 40 MG TABLET.DR PO SCH (06:40)
[2025-08-27 06:47] LABS: CREATININE 0.9 mg/dL (0.6-1.3); SODIUM SERUM 142 mmol/L (136-145); UREA NITROGEN, BLOOD 11 mg/dL (7-18)
[2025-08-27 07:46] VITALS: BP 154/64; TEMP 97.6; O2SAT 99
[2025-08-27] MEDS ORDERED: LORATADINE 10 MG TAB.RAPDIS PO SCH (09:00)
[2025-08-27] MEDS ORDERED: APIX2.5T PO (09:05)
[2025-08-27] MEDS: CYANOCOBALAMIN 1000 MCG/ML VIAL IM SCH (09:30)
[2025-08-27] MEDS: LIDOCAINE 5% PATCH TD SCH (09:30)
[2025-08-27] MEDS: LEVOTHYROXINE SODIUM 88 MCG TABLET PO SCH (09:36)
[2025-08-27] MEDS: APIXABAN 2.5 MG TABLET PO SCH (09:38)
[2025-08-27] MEDS: METOPROLOL TARTRATE 25 MG TABLET PO SCH (11:45)
[2025-08-27] MEDS: MAGNESIUM HYDROXIDE 30 ML LIQUID UDC PO ONE (11:45)
[2025-08-27 16:00] VITALS: BP 139/68; TEMP 97.7; O2SAT 98
[2025-08-27] MEDS: ENSURE ENLIVE (VAN) 240 ML LIQUID PO SCH (17:16)
[2025-08-27 20:10] VITALS: BP 155/84; TEMP 98.9; O2SAT 97
[2025-08-28 00:05] VITALS: BP 146/60; TEMP 98.1; O2SAT 96
[2025-08-28 05:21] VITALS: BP 141/63; TEMP 98.2; O2SAT 98
[2025-08-28 05:55] LABS: PLATELET COUNT (AUTO) 273 K/uL (179-408); RED BLOOD CELL COUNT(AUTO) 3.24 MIL/uL (3.63-4.92); RED CELL DISTRIBUTION WIDTH 17.7 % (12.3-17.7); WHITE BLOOD COUNT (AUTO) 3.9 K/uL (3.8-11.8)
[2025-08-28 06:11] LABS: CREATININE 0.9 mg/dL (0.6-1.3); SODIUM SERUM 137 mmol/L (136-145); UREA NITROGEN, BLOOD 11 mg/dL (7-18)
[2025-08-28 08:08] VITALS: BP 139/53; TEMP 98.1; O2SAT 97
[2025-08-28 09:12] LABS: NEUTROPHILS % (MANUAL) 0 % (42-75)
[2025-08-28 11:50] VITALS: BP 130/51; TEMP 98.1; O2SAT 94
[2025-08-28 16:54] VITALS: BP 130/54; TEMP 98.1; O2SAT 94
[2025-08-28 20:33] VITALS: BP 132/62; TEMP 98.3
[2025-08-29 06:31] LABS: PLATELET COUNT (AUTO) 314 K/uL (179-408); RED BLOOD CELL COUNT(AUTO) 3.48 MIL/uL (3.63-4.92); RED CELL DISTRIBUTION WIDTH 17.2 % (12.3-17.7); WHITE BLOOD COUNT (AUTO) 4.3 K/uL (3.8-11.8)
[2025-08-29 06:44] LABS: CREATININE 0.9 mg/dL (0.6-1.3); SODIUM SERUM 137 mmol/L (136-145); UREA NITROGEN, BLOOD 11 mg/dL (7-18)
[2025-08-29] MEDS ORDERED: METO25TA6 PO (09:12)
[2025-08-29] MEDS ORDERED: CEFT1VIA15 IV (09:12)
[2025-08-29 12:01] VITALS: BP 117/45; TEMP 97.7; O2SAT 97
== END 2025-08-29 14:30 | DRG 689 ==
LOC: ER 10:05 → TELE3 15:33 → MEDSURG3 08-28 15:26
PROVIDERS: ADMIT Student in an Organized Health Care Education/Training Program; ATTEND Student in an Organized Health Care Education/Training Program
DX: N39.0 Urinary tract infection, site not specified (principal); I21.A1 Myocardial infarction type 2; E83.51 Hypocalcemia; I50.9 Heart failure, unspecified; Z79.01 Long term (current) use of anticoagulants; I73.9 Peripheral vascular disease, unspecified; D50.9 Iron deficiency anemia, unspecified; N18.9 Chronic kidney disease, unspecified; F32.A Depression, unspecified; I35.0 Nonrheumatic aortic (valve) stenosis; I47.10 Supraventricular tachycardia, unspecified; K56.41 Fecal impaction; Z85.51 Personal history of malignant neoplasm of bladder; Z86.718 Personal history of other venous thrombosis and embolism; E78.5 Hyperlipidemia, unspecified; Z88.5 Allergy status to narcotic agent; Z88.6 Allergy status to analgesic agent; Z91.0110 Allergy to milk products, unspecified; Z22.322 Carrier or suspected carrier of Methicillin resistant Staphylococcus aureus; Z93.6 Other artificial openings of urinary tract status; R26.2 Difficulty in walking, not elsewhere classified; H26.9 Unspecified cataract; M15.9 Polyosteoarthritis, unspecified
CPT/HCPCS: 36415; 70030-TC; 71045; 74018; 83550; 83605; 83735; 84100; 84443; 84484; 85025; 87086; 93307; A4663; G0378; J0696; J3420; J3535; Q0163